=== PATIENT | female | born 1990 | race Caucasian/White ===

== ENCOUNTER 2018-01-16 12:11 | Outpatient (CLI) | payer OTHER | END 2018-01-16 17:55 | disposition home or self-care (01) | LOC: OBT 12:11 → L-D 12:12 → OBT 17:55 | DX: O9A.213 Injury, poisoning and certain other consequences of external causes complicating pregnancy, third trimester (principal); W19.XXXA Unspecified fall, initial encounter; Y92.89 Other specified places as the place of occurrence of the external cause; O99.513 Diseases of the respiratory system complicating pregnancy, third trimester; J45.909 Unspecified asthma, uncomplicated; Z88.0 Allergy status to penicillin; Z3A.29 29 weeks gestation of pregnancy | CPT/HCPCS: 76818 ==

== ENCOUNTER 2018-03-21 15:02 | Outpatient (CLI) | payer OTHER | END 2018-03-21 17:45 | disposition home or self-care (01) | LOC: OBT 15:02 → L-D 15:05 → OBT 17:45 | DX: O13.3 Gestational [pregnancy-induced] hypertension without significant proteinuria, third trimester (principal); Z3A.38 38 weeks gestation of pregnancy ==

== ENCOUNTER 2018-03-22 09:54 | Inpatient (IN) | payer OTHER ==
[2018-03-22 12:17] LABS: ADD MAN DIFF? NO
[2018-03-22 12:20] LABS: BASOPHILS % 0.3 % (0.0-2.0); EOSINOPHILS # 0.2 10^3/ul (0.0-0.5); EOSINOPHILS % 1.7 % (0.0-7.0); HEMATOCRIT 35.9 % (37.0-47.0); LYMPHOCYTES # 1.8 10^3/ul (0.8-2.9); LYMPHOCYTES % 17.8 % (15.0-51.0); MEAN CORPUSCULAR HEMOGLOBIN 27.7 pg (29.0-33.0); MEAN CORPUSCULAR HGB CONC 33.4 g/dl (32.0-37.0); MEAN CORPUSCULAR VOLUME 82.9 fl (82.0-101.0); MEAN PLATELET VOLUME 10.8 fl (7.4-10.4); MONOCYTE # 0.6 10^3/ul (0.3-0.9); MONOCYTES % 5.6 % (0.0-11.0); NEUTROPHIL # 7.6 10^3/ul (1.6-7.5); NEUTROPHILS % 74.2 % (39.0-77.0); PLATELET COUNT 262 10^3/UL (140-415); RED BLOOD COUNT 4.33 10^6/ul (4.20-5.40); RED CELL DISTRIBUTION WIDTH 14.5 % (11.5-14.5)
[2018-03-22 12:20] LABS: WHITE BLOOD COUNT 10.2 10^3/ul (4.8-10.8)
[2018-03-22] MEDS: LACTATED RINGER'S 1,000 ML IV ×2 (12:25→18:11)
[2018-03-22] MEDS ORDERED: OXYTOCIN 30 UNITS/LR 500 ML IV (12:30)
[2018-03-22] MEDS ORDERED: MISOPROSTOL 50 MCG CAPSULE VAG (12:30)
[2018-03-22] MEDS ORDERED: MISOPROSTOL 200 MCG TAB PR (12:30)
[2018-03-22] MEDS ORDERED: LIDOCAINE 1% (MPF) 30 ML INJ INJ (12:30)
[2018-03-22] MEDS ORDERED: CARBOPROST 250 MCG INJ IM (12:30)
[2018-03-22 12:41] LABS: INR 0.92; PROTIME 12.5 Sec (11.9-14.9)
[2018-03-22 12:42] LABS: PARTIAL THROMBOPLASTIN TIME 27.1 Sec (23.0-35.0)
[2018-03-22] MEDS: MISOPROSTOL 50 MCG CAPSULE PO ×2 (13:35→17:35)
[2018-03-22 19:57] LABS: RAPID PLASMA REAGIN NONREACTIVE (NR)
[2018-03-22 21:11] LABS: HEPATITIS B SURFACE ANTIGEN NEGATIVE (NEGATIVE)
[2018-03-23] MEDS: MISOPROSTOL 50 MCG CAPSULE PO ×4 (00:19→17:01)
[2018-03-23] MEDS: LACTATED RINGER'S 1,000 ML IV ×3 (02:17→19:18)
[2018-03-23] MEDS: OXYTOCIN 30 UNITS/LR 500 ML IV (21:16)
[2018-03-24] MEDS: LACTATED RINGER'S 1,000 ML IV (00:32)
[2018-03-24] MEDS ORDERED: FENTAnyl 2MCG/ML-ROPIV 0.2% 100 ML (00:49)
[2018-03-24] MEDS ORDERED: DIPHENHYDRAMINE 50 MG INJ IV ×3 (01:00→10:30)
[2018-03-24] MEDS ORDERED: ONDANSETRON 4 MG INJ IV ×3 (01:00→10:30)
[2018-03-24] MEDS ORDERED: NALOXONE (0.4 MG/ML) INJ IV (01:00)
[2018-03-24] MEDS: FENTAnyl 2MCG/ML-ROPIV 0.2% 100 ML BAG EPI (08:22)
[2018-03-24] MEDS: METHYLERGONOVINE 0.2 MG INJ IM (10:09)
[2018-03-24] MEDS: LACTATED RINGER'S 1,000 ML IV* ×2 (10:28→15:48)
[2018-03-24] MEDS ORDERED: LACTATED RINGER'S 1,000 ML IV* (10:28)
[2018-03-24] MEDS ORDERED: LANOLIN HPA 1 PKT TOP (10:30)
[2018-03-24] MEDS ORDERED: HYDROCODONE/APAP (5/325) TAB PO ×4 (10:30)
[2018-03-24] MEDS ORDERED: hydrOXYzine HCL 25 MG TAB PO (10:30)
[2018-03-24] MEDS ORDERED: SENNA/DOCUSATE NA (8.6MG/50MG) TAB PO (10:30)
[2018-03-24] MEDS ORDERED: ONDANSETRON 4 MG TAB PO ×2 (10:30)
[2018-03-24] MEDS ORDERED: CARBOPROST 250 MCG INJ IM ×2 (10:30)
[2018-03-24] MEDS ORDERED: DIPHENHYDRAMINE 25 MG CAP PO ×2 (10:30)
[2018-03-24] MEDS ORDERED: OXYTOCIN 30 UNITS/LR 500 ML IV ×2 (10:30)
[2018-03-24] MEDS ORDERED: ACETAMINOPHEN 325 MG TAB PO ×4 (10:30)
[2018-03-24] MEDS ORDERED: MISOPROSTOL 200 MCG TAB PR ×2 (10:30)
[2018-03-24] MEDS ORDERED: METHYLERGONOVINE 0.2 MG INJ IM ×2 (10:30)
[2018-03-24] MEDS ORDERED: DIBUCAINE 1% 30 GM OINT TOP ×2 (10:30)
[2018-03-24] MEDS ORDERED: ZOLPIDEM 5 MG TAB PO (10:30)
[2018-03-24] MEDS ORDERED: BENZOCAINE 20% 56 ML SPRAY TOP (10:30)
[2018-03-24] MEDS ORDERED: PROCHLORPERAZINE 25 MG SUPP PR (10:30)
[2018-03-24] MEDS ORDERED: MAGNESIUM HYDROXIDE 30ML CUP PO ×2 (10:30)
[2018-03-24] MEDS: OXYTOCIN 30 UNITS/LR 500 ML IV ×2 (10:54→10:55)
[2018-03-24] MEDS: IBUPROFEN 800 MG TAB PO ×2 (11:16→18:13)
[2018-03-24] MEDS ORDERED: IBUPROFEN 800 MG TAB PO (12:00)
[2018-03-24] MEDS: LANOLIN HPA 1 PKT TOP (18:13)
[2018-03-24] MEDS: BENZOCAINE 20% 56 ML SPRAY TOP (18:14)
[2018-03-24] MEDS: WITCH HAZEL/GLYCERIN PAD PR (18:15)
[2018-03-25] MEDS: LACTATED RINGER'S 1,000 ML IV* (02:28)
[2018-03-25] MEDS: IBUPROFEN 800 MG TAB PO ×4 (06:14→17:57)
[2018-03-25 07:52] LABS: ADD MAN DIFF? NO
[2018-03-25 07:58] LABS: WHITE BLOOD COUNT 15.3 10^3/ul (4.8-10.8)
[2018-03-25 07:58] LABS: BASOPHILS % 0.2 % (0.0-2.0); EOSINOPHILS # 0.2 10^3/ul (0.0-0.5); EOSINOPHILS % 1.4 % (0.0-7.0); HEMATOCRIT 31.9 % (37.0-47.0); HEMOGLOBIN 10.4 g/dl (12.0-16.0); LYMPHOCYTES # 2.7 10^3/ul (0.8-2.9); LYMPHOCYTES % 17.4 % (15.0-51.0); MEAN CORPUSCULAR HEMOGLOBIN 27.5 pg (29.0-33.0); MEAN CORPUSCULAR HGB CONC 32.6 g/dl (32.0-37.0); MEAN CORPUSCULAR VOLUME 84.4 fl (82.0-101.0); MEAN PLATELET VOLUME 10.8 fl (7.4-10.4); MONOCYTE # 0.8 10^3/ul (0.3-0.9); MONOCYTES % 5.2 % (0.0-11.0); NEUTROPHIL # 11.5 10^3/ul (1.6-7.5); NEUTROPHILS % 75.3 % (39.0-77.0); PLATELET COUNT 212 10^3/UL (140-415); RED BLOOD COUNT 3.78 10^6/ul (4.20-5.40); RED CELL DISTRIBUTION WIDTH 14.7 % (11.5-14.5)
[2018-03-25] MEDS ORDERED: [UNRECOGNIZED DRUG - OTHER] PO (09:00)
[2018-03-25] MEDS: PRENATAL VITAMIN PO (09:52)
[2018-03-25] MEDS: FOLIC ACID 1 MG TAB PO (09:52)
[2018-03-25] MEDS ORDERED: ALBUTEROL HFA 8 GM INHALER INH (14:00)
[2018-03-25] MEDS: SENNA/DOCUSATE NA (8.6MG/50MG) TAB PO (21:03)
[2018-03-26] MEDS: IBUPROFEN 800 MG TAB PO ×3 (00:20→12:13)
[2018-03-26 08:15] LABS: ADD MAN DIFF? NO
[2018-03-26 08:21] LABS: BASOPHILS % 0.3 % (0.0-2.0); EOSINOPHILS # 0.3 10^3/ul (0.0-0.5); EOSINOPHILS % 2.3 % (0.0-7.0); HEMATOCRIT 32.4 % (37.0-47.0); HEMOGLOBIN 10.6 g/dl (12.0-16.0); LYMPHOCYTES # 2.5 10^3/ul (0.8-2.9); LYMPHOCYTES % 20.5 % (15.0-51.0); MEAN CORPUSCULAR HEMOGLOBIN 27.8 pg (29.0-33.0); MEAN CORPUSCULAR HGB CONC 32.7 g/dl (32.0-37.0); MEAN PLATELET VOLUME 11.3 fl (7.4-10.4); MONOCYTE # 0.7 10^3/ul (0.3-0.9); MONOCYTES % 5.5 % (0.0-11.0); NEUTROPHIL # 8.6 10^3/ul (1.6-7.5); NEUTROPHILS % 70.8 % (39.0-77.0); PLATELET COUNT 229 10^3/UL (140-415); RED BLOOD COUNT 3.81 10^6/ul (4.20-5.40); RED CELL DISTRIBUTION WIDTH 14.8 % (11.5-14.5)
[2018-03-26 08:21] LABS: WHITE BLOOD COUNT 12.2 10^3/ul (4.8-10.8)
[2018-03-26] MEDS: VARICELLA VACCINE LIVE/PF 1,350 UNIT/0.5 ML ML SC* (09:00)
[2018-03-26] MEDS: FOLIC ACID 1 MG TAB PO (09:29)
[2018-03-26] MEDS: PRENATAL VITAMIN PO (09:30)
[2018-03-26] MEDS: DIPHTH/TET/ACEL PERTUSS (ADULT) 0.5 ML VIAL IM* (11:36)
[2018-03-26] MEDS: MEASLES,MUMPS,RUBELLA VACCINE INJ SC* (11:38)
== END 2018-03-26 15:47 | disposition home or self-care (01) | DRG 807 ==
LOC: PP1 03-24 15:10 → L-D 09:54
PROVIDERS: Obstetrics & Gynecology
PROC: 3E033VJ Introduction of Other Hormone into Peripheral Vein, Percutaneous Approach (ICD-10-PCS; 2018-03-22)
PROC: 10E0XZZ Delivery of Products of Conception, External Approach (ICD-10-PCS; principal; 2018-03-24)
PROC: 0KQM0ZZ Repair Perineum Muscle, Open Approach (ICD-10-PCS; 2018-03-24)
DX: O24.429 Gestational diabetes mellitus in childbirth, unspecified control (principal); O99.214 Obesity complicating childbirth; O36.63X0 Maternal care for excessive fetal growth, third trimester, not applicable or unspecified; E66.01 Morbid (severe) obesity due to excess calories; O70.1 Second degree perineal laceration during delivery; O69.81X0 Labor and delivery complicated by cord around neck, without compression, not applicable or unspecified; Z3A.39 39 weeks gestation of pregnancy; Z37.0 Single live birth
CPT/HCPCS: 62319; 76815; 85025; 85610; 85730; 86592; 86850; 86900; 86901; 87340; 90715